=== PATIENT | female | born 1970 ===

== ENCOUNTER 2018-11-21 13:00 | Emergency (ER) | payer SELFPAY ==
--- NOTE | 2018-11-21 13:20 | Event Note ---
ED Screening Note Date of service: 11/21/18 Time: 13:17 ED Screening Note: This is a 48 y.o. F. that presents to the ER with migraine to frontal this morning. Reports history of migraines but nothing like this one. States today 4 episodes of vomiting after symptoms started. LMP 10/22/2018 This initial assessment/diagnostic orders/clinical plan/treatment(s) is/are subject to change based on patients health status, clinical progression and re- assessment by fellow clinical providers in the ED. Further treatment and workup at subsequent clinical providers discretion. Patient/guardian urged not to elope from the ED as their condition may be serious if not clinically assessed and managed. Initial orders include: CT of head
[2018-11-21 13:37] LABS: Basophils % (Auto) 0.5 % (0.0-1.8); Eosinophils # (Auto) 0.1 K/mm3 (0.0-0.4); Eosinophils % (Auto) 1.6 % (0.0-4.3); Hematocrit 39.5 % (30.3-42.9); Hemoglobin 13.6 gm/dl (10.1-14.3); Mean Corpuscular HGB Conc 34 % (30-34); Mean Corpuscular Volume 89 fl (79-97); Monocytes # (Auto) 0.4 K/mm3 (0.0-0.8); Monocytes % (Auto) 5.7 % (0.0-7.3); Platelet Count 236 K/mm3 (140-440); Red Blood Count 4.45 M/mm3 (3.65-5.03); Red Cell Distribution Width 12.9 % (13.2-15.2)
[2018-11-21 13:55] LABS: BUN/Creatinine Ratio 24; Blood Urea Nitrogen 12 mg/dL (7-17); Calcium 9.5 mg/dL (8.4-10.2); Hemolysis Index 3
--- NOTE | 2018-11-21 14:20 | Cat Scan Report ---
CT HEAD WITHOUT CONTRAST INDICATION : migraine. Headaches TECHNIQUE: Axial imaging performed from the skull apex through the skull base without the use of con trast. Sagittal and coronal reformatted images. All CT scans at this location are performed using C T dose reduction for ALARA by means of automated exposure control. COMPARISON: None FINDINGS: Parenchyma: No acute intracranial hemorrhage or parenchymal abnormality. Ventricles: Ventricles are normal in size and appear symmetric. Bones: No acute osseous abnormality. Sinuses: Sinuses and mastoid air cells are clear. Soft tissues: Soft tissues including the orbits appear normal. IMPRESSION: No acute abnormality. Signer Name: Mitchell Pastrana Jr, MD Signed: 11/21/2018 2:15 PM Workstation Name: [id number]
[2018-11-21 17:32] VITALS: BP 120/70
[2018-11-21] MEDS ORDERED: COMPAZINE PO ONE (18:18)
[2018-11-21] MEDS ORDERED: FIORICET PO ONE (18:18)
--- NOTE | 2018-11-21 18:23 | Emergency Department Report ---
ED Headache HPI - General Chief Complaint: Headache Stated Complaint: HEADACHE Time Seen by Provider: 11/21/18 13:17 - History of Present Illness Initial Comments: This is a 48-year-old female with a history of migraine headaches presents to the ED today complaining of front 18:7 headache that began this morning. Palpation was seen at a clinic earlier and was sent to the ED due to her elevated blood pressure. Patient denies any history of hypertension or on any medications for blood pressure. She denies any head injury or trauma, fever, blurry vision or any visual disturbances. Quality: moderate, achy, pressure (tomorrow) Head Injury Location: frontal Recent Head Trauma: no recent headache/trauma, other (hxofmigraines) Modifying Factors: worse with: exposure to light Associated Symptoms: nausea/vomiting. denies: confusion, fatigue, loss of consciousness Allergies/Adverse Reactions: Allergies ranitidine [From Zantac] Allergy (Verified 11/21/18 13:19) Unknown Home Medications: Ambulatory Orders Ibuprofen [Motrin] 800 mg PO Q8HR #30 tablet 11/21/18 Prochlorperazine [Compazine] 10 mg PO TID #30 tablet 11/21/18 ED Review of Systems ROS: Stated complaint: HEADACHE Other details as noted in HPI Comment: All other systems reviewed and negative ED Past Medical Hx - Past Medical History Previous Medical History?: No - Surgical History Past Surgical History?: No - Social History Smoking Status: Never Smoker Substance Use Type: None - Medications Home Medications: Home Medications Medication Instructions Recorded Confirmed Last Taken Type Ibuprofen [Motrin] 800 mg PO Q8HR #30 tablet 11/21/18 Unknown Rx Prochlorperazine [Compazine] 10 mg PO TID #30 tablet 11/21/18 Unknown Rx ED Physical Exam - General Limitations: Language Barrier General appearance: alert, in no apparent distress - Head Head exam: Present: atraumatic, normocephalic - Eye Eye exam: Present: normal appearance - ENT ENT exam: Present: mucous membranes moist - Neck Neck exam: Present: normal inspection - Respiratory Respiratory exam: Present: normal lung sounds bilaterally. Absent: respiratory distress - Cardiovascular Cardiovascular Exam: Present: regular rate, normal rhythm. Absent: systolic murmur, diastolic murmur, rubs, gallop - GI/Abdominal GI/Abdominal exam: Present: soft, normal bowel sounds - Extremities Exam Extremities exam: Present: normal inspection - Back Exam Back exam: Present: normal inspection - Neurological Exam Neurological exam: Present: alert, oriented X3, normal gait - Expanded Neurological Exam Expanded Patient oriented to: Present: person, place, time Speech: Present: fluid speech Cerebellar function: Finger to Nose: Normal Motor strength exam: RUE: 5, LUE: 5 Best Eye Response ([place]): (4) open spontaneously Best Motor Response ([place]): (6) obeys commands Best Verbal Response ([place]): (5) oriented [place] Total: 15 - Psychiatric Psychiatric exam: Present: normal affect, normal mood - Skin Skin exam: Present: warm, dry, intact, normal color. Absent: rash ED Course Vital Signs 11/21/18 11/21/18 11/21/18 13:17 16:55 17:18 Temperature 98.4 F 97.7 F Pulse Rate 62 83 Respiratory 18 15 16 Rate Blood Pressure 158/71 Blood Pressure 120/70 [Left] O2 Sat by Pulse 100 100 Oximetry ED Medical Decision Making - Lab Data Result diagrams: 11/21/18 13:24 11/21/18 13:24 Laboratory Results - last 24 hr 11/21/18 11/21/18 13:24 13:24 WBC 7.0 RBC 4.45 Hgb 13.6 Hct 39.5 MCV 89 MCH 31 MCHC 34 RDW 12.9 L Plt Count 236 Lymph % (Auto) 15.0 [place] % (Auto) 5.7 Eos % (Auto) 1.6 Baso % (Auto) 0.5 Lymph # 1.0 L [place] # 0.4 Eos # 0.1 Baso # 0.0 Seg Neutrophils % 77.2 H Seg Neutrophils # 5.4 Sodium 141 Potassium 4.1 Chloride 102.0 Carbon Dioxide 28 Anion Gap 15 BUN 12 Creatinine 0.5 L Estimated GFR > 60 BUN/Creatinine Ratio 24 Glucose 115 H Calcium 9.5 - Radiology Data Radiology results: report reviewed, image reviewed CT HEAD WITHOUT CONTRAST INDICATION : migraine. Headaches TECHNIQUE: Axial imaging performed from the skull apex through the skull base without the use of contrast. Sagittal and coronal reformatted images. All CT scans at this location are performed using CT dose reduction for ALARA by means of automated exposure control. COMPARISON: None FINDINGS: Parenchyma: No acute intracranial hemorrhage or parenchymal abnormality. Ventricles: Ventricles are normal in size and appear symmetric. Bones: No acute osseous abnormality. Sinuses: Sinuses and mastoid air cells are clear. Soft tissues: Soft tissues including the orbits appear normal. IMPRESSION: No acute abnormality. Signer Name: Mitchell Kidd Jr, MD Signed: 11/21/2018 2:15 PM Workstation Name: [id number] Transcribed By: TTR Dictated By: MITCHELL KIDD JR, MD Electronically Authenticated By: MITCHELL KIDD JR, MD Signed Date/Time: 11/21/18 1415 - Medical Decision Making 48-year-old female presents with migraine headache. Patient received pain medication ED. Discussed the patient was sent home on pain medications. Vital signs are normal patient is in no acute distress. CT scan shows no acute findings C reported above Discussed the patient showed to follow up with her neurologist as well as continue to see her primary care physician for continued watch for her blood pressure Patient has no neurological deficit. Discussed the patient to rest and avoid stress as this may be triggers for migraine headache Critical care attestation.: If time is entered above; I have spent that time in minutes in the direct care of this critically ill patient, excluding procedure time. ED Disposition Clinical Impression: Migraine headache with aura, Acute headache Disposition: DC-01 TO HOME OR SELFCARE Is pt being admited?: No Does the pt Need Aspirin: No Condition: Stable Instructions: Acute Headache (ED), Migraine Headache (ED) Additional Instructions: Make sure to follow up with the primary care physician as discussed. Take all your medications as you've been prescribed. If you have any worsening symptoms or develop new symptoms please return to ED immediately. Prescriptions: Prochlorperazine [Compazine] 10 mg PO TID #30 tablet Ibuprofen [Motrin] 800 mg PO Q8HR #30 tablet Referrals: CRYSTAL LI MD [Primary Care Provider] - 3-5 Days ELZBIETA SANCHEZ MD [Staff Physician] - 3-5 Days [facility] [Provider Group] - 3-5 Days Forms: Accompanied Note, Work/School Release Form(ED) Time of Disposition: 18:27
== END 2018-11-21 18:55 | disposition home or self-care (01) ==
LOC: ED 13:00
DX: G43.109 Migraine with aura, not intractable, without status migrainosus (principal); Z88.8 Allergy status to other drugs, medicaments and biological substances
CPT/HCPCS: 36415; 70450; 80048; 85025; Q0164